=== PATIENT | female | born 1935 | race Two or more races ===

== ENCOUNTER 2020-01-11 09:18 | Outpatient (CLI) | payer OTHER | END 2020-01-11 09:19 | disposition home or self-care (01) | LOC: SONOGRAMA 09:18 | PROVIDERS: ATTEND Pathology Anatomic Pathology & Clinical Pathology | DX: E04.2 Nontoxic multinodular goiter (principal) ==

== ENCOUNTER 2024-12-06 05:17 | Day surgery (SDC) | payer OTHER ==
[2024-12-04 10:10] VITALS: BP 180/70
[2024-12-04 11:49] LABS: URINE APPEARANCE Clear; URINE BILIRRUBIN Negative (NEGATIVE); URINE BLOOD Negative; URINE COLOR Yellow; URINE GLUCOSE Negative (NEGATIVE); URINE KETONE Trace (NEGATIVE); URINE LEUKOCYTE Small; URINE NITRATE Negative; URINE PROTEIN Trace (NEGATIVE); URINE UROBILINOGEN 1.0 E.U./dl
[2024-12-04 11:51] LABS: URINE BACTERIA 30.0 uL (0.0-1933); URINE EPITHELIAL CELLS 12.4 uL (0.0-38.8); URINE RBC 5.7 uL (0.0-20.8); URINE WBC 7.0 uL (0.0-23.2)
[2024-12-04 11:52] LABS: BASO % 1.5 % (0.1-1.2); EOS # 0.22 (0.04-0.54); EOS % 2.3 % (0.7-7.0); LYMPH # 2.22 (1.18-3.74); LYMPH % 23.5 % (19.3-53.1); MEAN PLATELET VOLUME 10.80 fl (9.4-12.4); MONO # 0.51 (0.24-0.82); MONO % 5.4 % (4.7-12.5); NEUT # 6.32 (1.56-6.13); NEUT % 67.1 % (34.0-71.1); RED CELL DISTRIBUTION WIDTH 16.6 % (11.6-14.4)
[2024-12-04 11:54] LABS: URINE CAST 0.58 uL (0.0-1.40)
[2024-12-04 12:31] LABS: ALT/SGPT 37.0 U/L (12-78); AST/SGOT 32.0 U/L (15-37); BILIRUBIN TOTAL 0.94 mg/dL (0.3-1.2); BUN CREA RATIO 21.0 (7.0-25.0); CREATININE SERUM 0.8 mg/dL (0.55-1.02); GFR 67.85; GLOBULINA 3.4 G/DL (2.4-3.5); GLUCOSE FASTING 89.0 mg/dL (65-100); OSMOLALITY SERUM 282.0 MOSM/KG (275-295)
[2024-12-04 14:34] LABS: INR 1.08
[~2024-12-06] VITALS: Ht 149.9 cm; Wt 43.5 kg
[~2024-12-06 05:17] MED LIST: ACCUPRIL40 MG PO; COZAAR100 MG PO; LIPITOR40 MG PO
[2024-12-06] MEDS ORDERED: CIPROFLOXACIN IN 5 % DEXTROSE 400 MG/200 ML PIGGYBAG IV SCH (06:00)
[2024-12-06] MEDS ORDERED: SUGAMMADEX SODIUM 200 MG/2 ML VIAL IV ONE (10:15)
[2024-12-06] MEDS ORDERED: ENALAPRILAT DIHYDRATE 2.5 MG/2 ML VIAL IV ONE ×2 (11:00→11:15)
[2024-12-06] MEDS ORDERED: MORPHINE SULFATE 2 MG/ML CARTRIDGE IV ONE (11:30)
[2024-12-06] MEDS ORDERED: hydrALAZINE HCL 20 MG VIAL IV ONE (12:30)
== END 2024-12-06 14:45 | disposition home or self-care (01) ==
LOC: CIR.AMB 05:17
PROVIDERS: ATTEND Surgery
DX: C50.811 Malignant neoplasm of overlapping sites of right female breast (principal); D48.61 Neoplasm of uncertain behavior of right breast; Z88.0 Allergy status to penicillin